=== PATIENT | male | born 1945 | race Caucasian/White ===

== ENCOUNTER 2016-09-03 12:48 | Day surgery (SDC) | payer MEDICARE, OTHER ==
[~2016-09-03 12:48] MED LIST: ULTRAM50 MG PO; VOLTAREN75 MG PO
--- NOTE | 2016-09-03 14:45 | Operative Note ---
Colonoscopy ([place]) Procedure date: 09/03/16 Date of : 49 Procedure:Colonoscopy Colonoscopy with cold snare polypectomy Indications: Mr. Jamison is a 71-year-old gentleman who is here for follow-up screening/ surveillance colonoscopy. His last colonoscopy 15 years ago was normal in [place]. He reports no abdominal pain, weight loss, change in his bowel habits or rectal bleeding. He reports no family history of colon cancer. Performing Provider: Denis Landa MD Referrring Provider: Alma Jolley PA-C Sedation: Fentanyl 200 mg IV/Versed 9 mg IV Procedure: Prior to the procedure, a history and physical exam was performed, and patient medications and allergies were reviewed. The risks and benefits of the procedure and the sedation options and risks were discussed with the patient. All questions were answered and informed consent was obtained. Patient identification and proposed procedure were verified by the physician and the nurse. The patient was placed in a left lateral decubitus position. Throughout the procedure, the patient's blood pressure, pulse, and oxygen saturations were monitored continuously. Findings: On digital rectal examination there was normal rectal tone. There were no external hemorrhoids. The prostate was 2+, smooth, soft, symmetric without nodules. The colonoscope was introduced through the anal canal to the rectum and advanced to the cecum. The ileocecal valve and appendiceal orifice were identified. The scope was advanced a short distance into the ileum which appeared grossly normal. The scope was then withdrawn into the colon. There were 4 colon polyps identified in the ascending 2, transverse 1 and sigmoid 1. These ranged in size from 3-7 mm and were all removed via cold snare polypectomy. There were scattered diverticuli throughout the descending and sigmoid colon (LEFT colon). The rectum itself was normal. Upon retroflexion within the rectum there were grade 1 internal hemorrhoids. Impressions: 1. Diminutive colonic polyps 4 2. Left-sided diverticulosis 3. Grade 1 internal hemorrhoids Recommendations: I will follow up the polyp pathology and recommend repeat colonoscopy again in 5 years based upon the polyp histology. I would encourage fiber supplementation on a long-term daily maintenance basis. Complications: None EBL (ml): 0 at 1444
[2016-09-03 16:10] VITALS: BP 111/66
== END 2016-09-03 16:08 | disposition home or self-care (01) ==
LOC: SDC 12:48
PROVIDERS: Internal Medicine Gastroenterology
PROC: 0DBN8ZX Excision of Sigmoid Colon, Via Natural or Artificial Opening Endoscopic, Diagnostic (ICD-10-PCS; 2016-09-03)
PROC: 0DBL8ZX Excision of Transverse Colon, Via Natural or Artificial Opening Endoscopic, Diagnostic (ICD-10-PCS; 2016-09-03)
PROC: 0DBK8ZX Excision of Ascending Colon, Via Natural or Artificial Opening Endoscopic, Diagnostic (ICD-10-PCS; principal; 2016-09-03 14:00)
DX: Z12.11 Encounter for screening for malignant neoplasm of colon (principal); D12.2 Benign neoplasm of ascending colon; D12.3 Benign neoplasm of transverse colon; D12.5 Benign neoplasm of sigmoid colon; K57.30 Diverticulosis of large intestine without perforation or abscess without bleeding; K64.0 First degree hemorrhoids

== ENCOUNTER → 2017-05-24 | Emergency (ER) | payer MEDICARE, OTHER ==
[~2017-05-24] VITALS: Ht 179.1 cm; Wt 86.2 kg
[~2017-05-24] MED LIST changes: +AUGMENTIN 875-1 EACH PO; +FLONASE 50 MCG16 GM; +MEDROL 4MG. DOSE4 MG PO; +MUCINEX1200 MG PO; +PROMETHAZINE D118 ML PO
--- OUTSIDE RECORDS SUMMARY | 2017-05-24 10:28 | External Medical Summary Rpt | CCD ---
Author Author , ANKUSH LECHUGA Address Unknown Phone Care Team Providers Care Cargo Service Supervisor Name Role Phone Paul Wiley MD, Unavailable Unavailable Paul Wiley MD Purpose Continuity of Care Document - 12-15-2012 through 2016 Problems Code Diagnosis DOS Provider Status 841.9 841.9 12-15-2012 Dino SPRAIN [facility] ELBOW/FOREA [facility] NOS 844.9 844.9 12-15-2012 Dino SPRAIN OF [facility] KNEE & LEG [facility] NOS 924.00 924.00 12-15-2012 Dino CONTUSION [facility] E849.0 E849.0 12-15-2012 Dino ACCIDENT [facility] E918 [id number] CAUGHT 12-15-2012 Dino BETWEEN [facility] E78.5 HYPERLIPIDE EMORY, UNSPECIFIED R53.83 OTHER FATIGUE Z12.5 ENCOUNTER FOR SCREENING FOR MALIGNANT NEOPLASM OF PROSTATE Allergies, Adverse Reactions, Alerts Type Drug Allergy Adverse Reaction to Substance Substance Reaction Severity No Known Allergies - Unknown Unknown Nka Medications Na ND Rx Da Fi Fi Am Da Di Ph RX Ph St me C No te ll ll ou ys ag ar # ys at rm s nt no ma ic us Or Da si cy ia de te s n re d AC 51 06 0 No ET 07 -2 AM 90 4- Lo IN 16 20 ng OP 19 13 er HE 9H N Ac W/ ti CO ve DE IN E #3 TA K IN 51 06 0 No DO 07 -2 ME 90 4- Lo TH 19 20 ng AC 02 13 er IN 0 Ac 25 ti ve MG CA PS UL E Vital Signs 12-15-2012 22:23 Name Value Interpretat Reference Comment ion Range Body 98.1 [degF] Temperature BP 82 mm[Hg] Diastolic BP Systolic 132 mm[Hg] Heart 62 /min Rate/Pulse O2% 98 % Respiratory 17 /min Rate 12-15-2012 22:21 Name Value Interpretat Reference Comment ion Range Body 98.1 [degF] Temperature 12-15-2012 21:47 Name Value Interpretat Reference Comment ion Range BP 83 mm[Hg] Diastolic BP Systolic 147 mm[Hg] Heart 62 /min Rate/Pulse O2% 98 % Respiratory 18 /min Rate Encounters Encounter Start End Date Code Location Performer Type Date Emergency TAVON Wiley MD (ER) 3 21:25 3 22:23 [facility]
--- OUTSIDE RECORDS SUMMARY | 2017-05-24 10:28 | External Medical Summary Rpt | CCD ---
Author Author , ANKUSH LECHUGA Address Unknown Phone [email or web address] Care Team Providers Care Blue Line Hanger Name Role Phone Paul Wiley MD, Unavailable Unavailable Paul Wiley MD Purpose Continuity of Care Document - 12-15-2012 through 2016 Problems Code Diagnosis DOS Provider Status 841.9 841.9 12-15-2012 Dino SPRAIN [facility] ELBOW/FOREA [facility] NOS 844.9 844.9 12-15-2012 Dino SPRAIN OF [facility] KNEE & LEG [facility] NOS 924.00 924.00 12-15-2012 Dino CONTUSION [facility] E849.0 E849.0 12-15-2012 Dino ACCIDENT IN [facility] E918 E918 CAUGHT 12-15-2012 Dino BETWEEN [facility] E78.5 HYPERLIPIDE EMORY, UNSPECIFIED R53.83 [...] Wiley MD (ER) 3 21:25 3 22:23 [facility]
--- OUTSIDE RECORDS SUMMARY | 2017-05-24 10:28 | External Medical Summary Rpt | CCD ---
Author Author [employer] Organization [employer] Address Unknown Phone Unavailable Purpose Continuity of Care Document - through 2016
--- OUTSIDE RECORDS SUMMARY | 2017-05-24 10:28 | External Medical Summary Rpt | CCD ---
Demographics Preferred Language [place] Citizen Marital Status Unknown Nondenominational Affiliation Unknown Race Unknown Ethnic Group Unknown Author Author DAJA Address Unknown Phone Immunization No patient found.
--- OUTSIDE RECORDS SUMMARY | 2017-05-24 10:28 | External Medical Summary Rpt | CCD ---
Demographics Preferred Language Gambian Marital Status Unknown Restorationism Affiliation Unknown Race Unknown Ethnic Group Unknown Author Author DAJA Address Unknown Phone Immunization No patient found.
--- OUTSIDE RECORDS SUMMARY | 2017-05-24 10:29 | External Medical Summary Rpt ---
Author Author ANKUSH Yepez, [employer] Address Unknown Phone Unavailable
[2017-05-24 11:02] LABS: UTC STREP SCREEN NOT DETECTED (NOTDETECTED)
--- NOTE | 2017-05-24 11:10 | Urgent Treatment Center Report ---
History of Present Issue Date/Time Seen by Provider 05/24/17 1058 Visit Reason Pt arrived:Walked Presenting Problem:PT IS C/O SORE THROAT, COUGH AND CONGESTION X2 DAYS Location if Accident: Onset of symptoms date/time:/ or onset unknown for:MEDICAL HX UNKNOWN Have you (or family members/close friends) recently traveled outside the [place]? N If Yes, where/when: Have you had exposure to infectious disease within the past month? TB? Other? Specify: Patient state that he has not been feeling well for several days Having cough, congestion and sinus pain and pressure States that he is feeling pressure in his sinuses and makes his ears feel full. State that he has taken several over the counter sinus medication but nothing has worked State that at first he thought it was just allergies untill his sinus drainage changed colors from clear to yellowish brown and thick ALLERGIES Coded Allergies: No Known Drug Allergies (09/03/16) History Medical History General CAD? No Angina: No MD: No Hypertension? No Hyperlipidemia? No CHF? No DVT? No PE? No COPD? No Asthma? No Anemia? No GERD? No Gastric ulcers? No GI Bleed? No Hernia? No Thyroid Problems? No Hypothyroidism? No CVA? No Seizures? No Diabetes? No Renal Insuffiency? No UTI? No Stones? No BPH? No GB Disease: No Nephritic Syndrome? No Asplenia? No Hepatitis? No Sickle Cell Disease? No Arthritis? No Migraines? No Cataracts? No Glaucoma? No MRSA? No HIV? No TB? No Anxiety? No Depression? No Cancer? No More? No Immunization HX DT/Tetanus UNKNOWN Surgical Hx Previous Surgery?Y BACK X2 CERVICAL Appendectomy Social History Smoking Hx Smoker: Never Smoker Tobacco: No Alcohol Alcohol: No Review of Systems All Other Systems Reviewed and Negative Constitutional chills ENT ear pain, nose congestion, throat pain. Respiratory cough, denies shortness of breath, denies wheezing Physical Exam Vital Signs Vital Signs Date Time Temp Pulse Resp B/P Pulse O2 O2 Flow FiO2 Ox Delivery Rate 05/24 1113 98.4 88 20 180/77 98 05/24 1033 98.4 80 20 185/91 99 General Appearance Apprears ill, sitting on exam table Ear, Nose, Throat sinus pain/drainage, nasal congestion, throat red, irritated tenderness noted maxillary sinuses, bilateral ears no redness TM buldging Respiratory Status Yes: trachea midline, chest symmetrical, non tender chest. No: respiratory distress. Lung Sounds bilateral: normal breath sounds, lungs clear. Cardiovascular normal exam, regular rate/rhythm, no peripheral edema Neurologic alert, normal exam, oriented x 3 Medical Decision Making LABS/Meds/Orders Pt receiving controlled substance in ED? No Results/Orders Laboratory Tests 05/24/17 1043: Influenza Type A Ag NOT DETECTED, Influenza Type B Ag NOT DETECTED, Group A Strep Screen NOT DETECTED Orders Procedure Date/time Status UTC STREP SCREEN 05/24 1043 Complete UTC FLU A,B 05/24 1043 Complete Departure Departure Time of Disposition 1105 Disposition DC Home or Self Care(routine) Clinical Impression Primary Impression: Upper respiratory infection Qualifiers: URI type: unspecified URI Qualified Code: J06.9 - Acute upper respiratory infection, unspecified Condition STABLE Referrals Shaji NIELSEN,Cricket (Family): 3 Days-Call Office if no improvement in symptoms Patient Instructions Cough, DI for Nasal Congestion, DI for Sinusitis, Sore Throat Additional Instructions * Monitor Temp. Tylenol and/or Ibuprofen as needed. ER if fever is no less than 101 despite alternating Tylenol and Ibuprofen * Encourage fluids, water, Gatorade, powerade, pedialyte if /toddler/or child * Warm salt water gargles for throat irritation *Warm fluids *Sore throat lozenges *Sleep elevated *humidifier or vaporizer Lots of rest Increase fluids, water, Gatorade, powerade *Flonase 2 sprays each nostril daily but may take 2-3 days to notice improvement with it *Your throat swab was sent to lab for culture. Those results area typically sent to your primary care physician. Be sure to follow up in 2-3 days if no improvement so they can review those results and treat if necessary If you dont have primary care I recommend you get one, but in the mean time you will have to return to a walk in clinic Follow up IMMEDIATELY for new or worsening of symptoms OR no noticeable improvement over the next 48-72 hours. 911 immediately for any life threatening symptoms such as chest pain or difficulty breathing Discharge Counseling Counseled pt/family regarding diagnosis, test results, medications/RX, home care, follow up needs Prescriptions Current Visit Scripts Amoxicillin/Potassium Clav (Augmentin 875-125 Tablet) 1 EACH PO BID #14 TAB Fluticasone Propionate (Flonase 50 Mcg Nasal [place]) 2 SPRAY NA DAILY #1 BOT Methylprednisolone (Medrol Dose Ramiro) 4 MG PO UD #1 RAMIRO TAKE DIRECTED ON PACKAGING PROMETHAZINE/DEXTROMETHORPHAN (Promethazine-Dm Syrup) 5 ML PO Q4HP PRN cough #150 SYR Guaifenesin (Mucinex) 1,200 MG PO BID #20 TER at 1454 PROMETHAZINE/DEXTROMETHORPHAN (Promethazine-Dm Syrup) 5 ML PO Q4HP PRN cough #150 SYR Guaifenesin (Mucinex) 1,200 MG PO BID #20 TER
[2017-05-24 11:13] VITALS: BP 180/77
== END ==
LOC: UTC 10:24
PROVIDERS: Nurse Practitioner
DX: J06.9 Acute upper respiratory infection, unspecified (principal)